=== PATIENT | male | born 1990 | race Caucasian/White ===

== ENCOUNTER 2017-05-15 18:22 | Emergency (ER) | payer BC ==
[2017-05-15 18:23] VITALS: BP 180/94; PULSE 111; RESP 16; TEMP 98.3; O2SAT 100
[2017-05-15] MEDS ORDERED: VORT1TAB2 PO (18:36)
[2017-05-15] MEDS ORDERED: PRIL20TA2 PO (18:36)
[2017-05-15] MEDS ORDERED: PERC5TAB12 PO (19:18)
[2017-05-15] MEDS ORDERED: ZOFR4TAB PO (19:18)
[2017-05-15] MEDS ORDERED: AUGM875T3 PO (19:18)
--- NOTE | 2017-05-15 19:22 | PD ---
Physical Exam Date Seen by Provider: May 15, 2017 Narrative Patient is here for evaluation of a pilonidal cyst [place]. He is here on vacation. He developed some bleeding and was concerned and presented to us tonight. Data Data Last Documented VS Vital Signs Date Time Temp Pulse Resp B/P (MAP) Pulse Ox O2 Delivery O2 Flow Rate FiO2 05/15/17 18:36 16 05/15/17 18:23 98.3 111 180/94 (122) 100 Orders Orders Oxycodone-Acetamin 5-325 Mg (Percocet (05/15/17 19:30) Amoxicil-Clavulanate (Augmentin) (05/15/17 19:30) Wound Culture And Gram Stain (05/15/17:17) Wound Care (05/15/17:17) Ed Discharge Order (05/15/17:17) MDM Supervised Visit with JEFFERY: Yes Narrative Course I, Dr. Brambila, have reviewed the advance practice practitioner's documentation and am in agreement, met with the patient face to face, made the diagnosis, and the medical decision making was done by me. *My assessment and Findings: He has a surgical wound in the pilonidal area. There is some drainage from the wound but the surrounding skin does not have significant erythema or warmth. Please see Hayder Rowley PA-C's note for results of laboratory and radiographic evaluation, ED course, final diagnosis and disposition Scripts Ondansetron (Zofran) 4 Mg Tab 4 MG PO Q6HR Y for NAUSEA OR VOMITING, #15 TAB 0 Refills Prov: Dulce Maria Brambila MD 05/15/17 Oxycodone-Acetaminophen (Percocet) 5-325 mg Tab 1 TAB PO Q6H Y for PAIN, #15 TAB 0 Refills Prov: Dulce Maria Brambila MD 05/15/17 Amoxicillin-Clavulanate (Augmentin) 875-125 Mg Tab 1 TAB PO BID for Infection for 10 Days, #20 TAB 0 Refills Prov: Dulce Maria Brambila MD 05/15/17 Dulce Maria Brambila MD May 15, 2017 19:22
--- NOTE | 2017-05-15 19:24 | PD ---
HPI Chief Complaint: Lump, Cyst, Hernia Time Seen by Provider: 19:17 Travel History International Travel<30 days: No Contact w/Intl Traveler<30days: No Traveled to known affect area: No History of Present Illness HPI 27-year-old male presents for evaluation of pain and bleeding. The patient underwent surgical excision of pilonidal cyst/sinus on April 23 by a colorectal surgeon in [place]. He is currently on vacation visiting family, returning home tomorrow. He reports that he has been changing bandages daily. Today he had increased pain and increased bleeding at the site of the surgical excision when he removed his bandages and this is what prompted evaluation. Pain is aching, constant, worse when sitting. He is previously on [place] but she ran out 2 days ago. Denies any fevers, chills, nausea or vomiting, abdominal pain. No other complaints. PFSH Past Medical History Anemia: Yes Anxiety: Yes Depression: Yes Diminished Hearing: No Gastrointestinal Disorders: Yes Psychiatric: Yes Integumentary: Yes Tetanus Vaccination: < 5 Years Influenza Vaccination: Yes Past Surgical History Tonsillectomy: Yes Other Surgery: Yes (pilonidal cyst removed) Social History Alcohol Use: No Tobacco Use: No Substance Use: No Allergies-Medications (Allergen,Severity, Reaction): Coded Allergies: No Known Allergies (Verified Allergy, Unknown, 05/15/17) Reported Meds & Prescriptions Reported Meds & Active Scripts Active Zofran (Ondansetron HCl) 4 Mg Tab 4 Mg PO Q6HR PRN Percocet (Oxycodone-Acetaminophen) 5-325 mg Tab 1 Tab PO Q6H PRN Augmentin (Amoxicillin-Clavulanate) 875-125 Mg Tab 1 Tab PO BID 10 Days Reported Prilosec (Omeprazole Magnesium) 20 Mg Tab 20 Mg PO DAILY Trintellix (Vortioxetine) 10 Mg Tab 10 Mg PO DAILY Review of Systems Except as stated in HPI: all other systems reviewed are Neg Physical Exam Narrative GENERAL: Well-developed well-nourished male in no acute distress SKIN: Warm and dry. Examination of the upper gluteal cleft reveals a large surgical incision, somewhat erythematous around the wound margins, somewhat foul smelling without any active bleeding or purulent drainage. HEAD: Atraumatic. Normocephalic. EYES: Pupils equal and round. No scleral icterus. No injection or drainage. RESPIRATORY: No accessory muscle use. Clear to auscultation. Breath sounds equal bilaterally. GASTROINTESTINAL: Abdomen soft, non-tender, nondistended. Hepatic and splenic margins not palpable. MUSCULOSKELETAL: No obvious deformities. No clubbing. No cyanosis. No edema. NEUROLOGICAL: Awake and alert. No obvious cranial nerve deficits. Motor grossly within normal limits. Normal speech. PSYCHIATRIC: Appropriate mood and affect; insight and judgment normal. Data Data Last Documented VS Vital Signs Date Time Temp Pulse Resp B/P (MAP) Pulse Ox O2 Delivery O2 Flow Rate FiO2 05/15/17 18:36 16 05/15/17 18:23 98.3 111 180/94 (122) 100 Orders Orders Oxycodone-Acetamin 5-325 Mg (Percocet (05/15/17 19:30) Amoxicil-Clavulanate (Augmentin) (05/15/17 19:30) Wound Culture And Gram Stain (05/15/17 19:17) Wound Care (05/15/17 19:17) Ed Discharge Order (05/15/17 19:17) [facility] Medical Decision Making Medical Screen Exam Complete: Yes Emergency Medical Condition: Yes Medical Record Reviewed: Yes Differential Diagnosis Postoperative bleeding, postoperative wound infection, seroma Narrative Course A wound culture has been ordered and, pending wound culture results, the patient will be placed on Augmentin. He will be given a short course of Percocet and Zofran for symptom relief. Local wound care provided. Discussed signs and symptoms weren't returning to the emergency room. He is stable for discharge. He has no plan to follow up with his colorectal surgeon next week. Diagnosis Primary Impression: Draining postoperative wound Additional Instructions: Change dressings twice daily. Medications as prescribed. Take ibuprofen for pain, take Percocet for breakthrough pain. Follow-up with your colorectal surgeon and return for any acutely new or worsening symptoms. Med/Other Pt SpecificInfo: Prescription(s) given, Wound Care Scripts Ondansetron (Zofran) 4 Mg Tab 4 MG PO Q6HR Y for NAUSEA OR VOMITING, #15 TAB 0 Refills Prov: Dulce Maria Brambila MD 05/15/17 Oxycodone-Acetaminophen (Percocet) 5-325 mg Tab 1 TAB PO Q6H Y for PAIN, #15 TAB 0 Refills Prov: Dulce Maria Brambila MD 05/15/17 Amoxicillin-Clavulanate (Augmentin) 875-125 Mg Tab 1 TAB PO BID for Infection for 10 Days, #20 TAB 0 Refills Prov: Dulce Maria Brambila MD 05/15/17 Disposition: 01 DISCHARGE HOME Condition: Stable Hayder Rowley May 15, 2017 19:24
[2017-05-15] MEDS ORDERED: oxyCODONE/ACETAMINOPHEN 5 MG/325 MG TAB PO ONE (19:30)
[2017-05-15] MEDS ORDERED: AMOXICILLIN/CLAVULANATE K 875 MG TAB PO ONE (19:30)
[2017-05-15 19:38] VITALS: BP 136/72; TEMP 98
== END 2017-05-15 19:38 | disposition home or self-care (01) ==
LOC: NEPD 18:22
DX: L05.91 Pilonidal cyst without abscess (principal); B95.61 Methicillin susceptible Staphylococcus aureus infection as the cause of diseases classified elsewhere
CPT/HCPCS: 87070; 87077; 87186; 87205; 99284